=== PATIENT | female | born 1945 | race Caucasian/White ===

== ENCOUNTER → 2021-10-22 09:14 | Outpatient (BNVA) | payer MEDICARE, OTHER, SELFPAY | PROVIDERS: PCP Family Medicine; Referring Provider Nurse Practitioner Family; Visit Provider Podiatrist Foot & Ankle Surgery | DX: M79.671 Pain in right foot (principal); M21.611 Bunion of right foot | CPT/HCPCS: 73630 ==

== ENCOUNTER → 2022-08-08 09:50 | Outpatient (BNVA) | payer MEDICARE, SELFPAY | PROVIDERS: PCP Family Medicine; Visit Provider Podiatrist Foot & Ankle Surgery | DX: M21.611 Bunion of right foot (principal); M21.621 Bunionette of right foot | CPT/HCPCS: 73630; 99214 ==

== ENCOUNTER 2022-08-09 06:18 | Day surgery (SDC) | payer MEDICARE, SELFPAY ==
[2022-08-08 12:06] VITALS: BMI 29.2
[2022-08-09] VITALS (7 sets, daily range): BP systolic 96–145; BP diastolic 46–72; PULSE 66–75; RESP 16–18; TEMP 36.1–36.5; O2SAT 95–98
--- NOTE | 2022-08-09 06:41 | ECG_ITS ---
[facility] Test Date: 2022-08-09 Pat Name: Yenny Mcmanus Department: Room: Gender: Female [place]: : 1945 Requested By: Herb Katz Order Number: [id number] [place] MD: Sulma Guzman M.D. Measurements Intervals [place] Rate: 64 P: 58 [place]: 149 QRS: 36 QRSD: 105 T: 45 QT: 406 QTc: 420 Interpretive Statements SINUS RHYTHM No previous ECG available for comparison Electronically Signed On 08-09-2022 17:03:27 OVEN DUMPER by Sulma Guzman M.D. [email or web address]
[2022-08-09] MEDS: sodium chloride 0.9% 1,000 ML 30 ML IV (06:45)
[2022-08-09] MEDS: CELEcoxib 200 mg Capsule 400 MG PO (06:54)
[2022-08-09] MEDS: gabapentin 300 mg Capsule PO (06:54)
--- NOTE | 2022-08-09 08:13 | W.PM.OPSUD ---
Surgery/Procedure H&P Update DATE OF PROCEDURE: August 09, 2022 DATE H&P PERFORMED: 08/08/22 CHANGES TO PREVIOUS DOCUMENTATION: None PREOP DIAGNOSIS: Right bunion PLANNED PROCEDURE: Operation Date: 08/09/22 08:00 Proposed Procedures p Bunionectomy Tailors 54128/M21.611(Right) - Piter Boone DPM s Double Osteotomy(Right) - Piter Boone DPM
[2022-08-09] MEDS: ceFAZolin 2,000 MG in sodium chloride 0.9% (plus) 50 ML 100 MG IV (08:24)
--- NOTE | 2022-08-09 09:18 | PM.OP ---
Operative Report Date of procedure: August 09, 2022 Pre-op diagnosis: Preop Diagnosis Right bunion Post-op diagnosis: Right bunion Procedure done: Right Indra bunionectomy. CPT code 3296 Implants: Lauren 3 mm headed screw, Lauren 10 mm compression staple, 3-0 Vicryl, 4-0 Vicryl, 4-0 nylon Surgeon: Piter Boone D.P.M. Surgical Forceps Fabricator: Nikki Estimated blood loss: 5 30 Brief History: This is an established 76 YOF patient presenting to the clinic for a pre op appointment to go over recovery time & risk on a right hallux bunionectomy. Patient is scheduled for surgery tomorrow August 08.? She complains of right bunion pain has been progressive over the course of years and is no longer alleviated by conservative measures consisting of wide accommodative shoes, anti-inflammatories, activity modifications and stretching.? I reviewed at length with the patient, the risks, potential complications, benefits, alternatives, expectations, and typical outcomes associated with the surgery. The risks and potential complications were explained in detail, including but not limited to infection, wound dehiscence or soft tissue complications, bleeding and hematoma, chronic edema, neuritis or nerve damage producing numbness or chronic pain, CRPS, failure to relieve pain or worsening pain, thick / painful / unsightly scar, limited motion / stiffness, malposition, delayed union, malunion, or nonunion, fracture, reaction to implants, anesthetic complications, venous thromboembolism, and deformity recurrence.? I discussed the notion of no regrets with the patient as it pertains to complications and outcomes. The patient seemed to understand the nature of the proposed care and required convalescence. They asked appropriate questions, answered to their satisfaction. They are aware no guarantees can be made as to a satisfactory outcome and they understand there may be other possible unforeseen complications or outcomes not listed here that will be treated accordingly if they arise. There were no written or implied guarantees given to the patient. They gave informed consent to proceed. Procedure: Attention was directed to the dorsal medial aspect of the right first metatarsal phalangeal joint where a linear longitudinal incision was made through skin with a #15 blade with dissection carried down through subcutaneous tissue to the layer joint capsule and periosteum utilizing a combination of blunt and sharp technique.? Care was taken to retract and preserve neurovascular and tendinous structures.? All bleeders were ligated and cauterized as necessary.? A linear capsulotomy was performed and the medial eminence of the right first metatarsal head was transected with a sagittal saw and passed from operative field.? Next utilizing a sagittal saw a chevron osteotomy was performed apex oriented distally with the head of the first metatarsal right foot translated laterally into a more anatomically corrected position followed by fixation utilizing standard AO technique, osteotomy was fixated utilizing a Lauren headed 3 mm in diameter and partially threaded.? Medial shelf was transected, passed from operative field and all rough edges smoothed.? Fixation was robust with excellent bony apposition and compression noted without violating the first metatarsal phalangeal joint confirmed with direct visualization as well as intraoperative fluoroscopy in all 3 standard views.? Incision was then flushed with copious amounts of sterile skin solution.? Smooth range of motion of the first metatarsal plantar joint appreciated as well as reduction of the bunion deformity and a more rectus medial column was appreciated.? Capsule closed with 3-0 Vicryl, subcutaneous tissue with 4-0 Vicryl and skin with 4-0 nylon.? Exparel was infiltrated in a grid like fashion a total of 10 cc expanded with 10 cc of saline.? Dressings consisting of Adaptic, sterile 4 x 4's, Kerlix and Kenny wrap were applied and tourniquet was deflated.? Postop shoe and cam boot sent with the patient for protected weightbearing.? She was sent home with a cam boot with vital signs stable and vascular status intact.? Prescribed hydrocodone 5/325 mg to take every 4-6 hours as needed for pain.? Advised 81 mg aspirin once daily for the next 6 weeks to potentially reduce the risk of deep vein thrombosis.? Was given my cell phone number to contact with any postoperative questions or concerns.
--- NOTE | 2022-08-09 09:22 | XR_ITS ---
WS: [id number] Right foot, 3 views, 08/09/2022 Clinical Data: post op Comparison: Right foot, 08/08/2022 Findings: There is an osteotomy of the distal right first metatarsal with a distal oblique screw aiding in the reduction. There is resection of the medial aspect of the head of the right first metatarsal. XR/XR foot RT min 3V* [id number] Impression: Osteotomy and bunionectomy of the distal right first metatarsal.
--- NOTE | 2022-08-09 09:52 | ANES.PREANE2 ---
Pre-Anesthetic Assessment Height/Weight: Height 1.57 m Weight 72.575 kg Temp Pulse Resp BP Pulse Ox O2 Del Method 97.0 F L 69 16 134/72 98 08/09/22 09:39 08/09/22 09:39 08/09/22 09:39 08/09/22 09:39 08/09/22 09:39 08/09/22 09:39 Preop Diagnosis: Right bunion Operation Date: 08/09/22 08:00 Proposed Procedures p Bunionectomy Tailors 26714/M21.611(Right) - Piter Boone DPM s Double Osteotomy(Right) - Piter Boone DPM Familial anesthetic complications: none Was Beta Dinorah taken within 24 hours: N/A Was Clonidine taken within 24 hours: N/A Social No alcohol and No tobacco Exam alert, oriented x 3, clear to auscultation bilaterally and regular rate & rhythm Airway Submandibular: within normal limits Cervical ROM: within normal limits Mallampati: Class II Dentition: partials Anesthetic Plan ASA status: 1 Anesthesia: MAC Medications/Allergies Home Medications Medication Instructions Recorded Confirmed Last Taken Type hydrocodone 10 mg-acetaminophen 1 tab PO Q6H PRN pain 7 days #20 08/09/22 Unknown Rx 325 mg tablet tabs Allergies Allergy/AdvReac Type Severity Reaction Status Date / Time diphenhydramine Allergy ALGY-Hives Verified 08/09/22 06:33 [From Benadryl] Current Medications Generic Name Dose Route Start Last Admin Trade Name Freq PRN Reason Stop Dose Admin Sodium Chloride 1,000 mls @ 30 mls/hr 08/09/22 06:30 08/09/22 09:09 Sodium Chloride 0.9% IV 08/10/22 06:29 Infused .Q24H ROSSANA Infusion PFSH Anesthesia Medical History H/O Dixon's palsy Obesity 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
--- NOTE | 2022-08-09 14:44 | ANE.PACU2 ---
Inpatient post-anesthesia follow up: Airway intact: Yes Vital signs: Temperature 97.0 F Pulse Rate 72 Respiratory Rate 18 Blood Pressure 125/70 Pulse Oximetry 98 Oxygen Delivery Me thod Room Air Oxygen Flow Rate Fraction of Inspir ed Oxygen Hydration adequate: Yes Nausea and vomiting: No Pain level: 2 Mental status: Baseline
== END 2022-08-09 10:26 | disposition home or self-care (01) ==
PROVIDERS: PCP Nurse Practitioner Family; Visit Provider Podiatrist Foot & Ankle Surgery
PROC: 0QBP0ZZ Excision of Left Metatarsal, Open Approach (ICD-10-PCS; CPT 28110; principal; 2022-08-09 07:50)
DX: M21.611 Bunion of right foot (principal); E66.9 Obesity, unspecified; Z68.29 Body mass index [BMI] 29.0-29.9, adult
CPT/HCPCS: 28299; 73630; 93005; C1713; C9290; J0690; J1100; J2250; J2405; J2704; J3010; J3490; J7030

== ENCOUNTER → 2022-08-22 13:37 | Outpatient (BNVA) | payer MEDICARE, SELFPAY | PROVIDERS: PCP Nurse Practitioner Family; Visit Provider Podiatrist Foot & Ankle Surgery | DX: Z98.890 Other specified postprocedural states (principal); M21.611 Bunion of right foot; M21.621 Bunionette of right foot | CPT/HCPCS: 73630; 99024 ==

== ENCOUNTER → 2022-09-05 13:23 | Outpatient (BNVA) | payer MEDICARE, SELFPAY | PROVIDERS: PCP Nurse Practitioner Family; Visit Provider Podiatrist Foot & Ankle Surgery | DX: Z98.890 Other specified postprocedural states (principal); M21.611 Bunion of right foot; M21.621 Bunionette of right foot | CPT/HCPCS: 73630; 99024 ==

== ENCOUNTER → 2022-09-19 13:26 | Outpatient (BNVA) | payer MEDICARE, SELFPAY | PROVIDERS: PCP Nurse Practitioner Family; Visit Provider Podiatrist Foot & Ankle Surgery | DX: Z98.890 Other specified postprocedural states (principal); M79.671 Pain in right foot | CPT/HCPCS: 73630; 99024 ==

== ENCOUNTER → 2022-10-17 14:22 | Outpatient (BNVA) | payer MEDICARE, SELFPAY | PROVIDERS: PCP Nurse Practitioner Family; Visit Provider Podiatrist Foot & Ankle Surgery | DX: Z98.890 Other specified postprocedural states (principal); M21.611 Bunion of right foot; M21.621 Bunionette of right foot | CPT/HCPCS: 73630; 99024 ==

== ENCOUNTER → 2023-02-25 15:10 | Outpatient (BNVA) | payer MEDICARE, SELFPAY | PROVIDERS: PCP Nurse Practitioner Family; Visit Provider Nurse Practitioner Family | DX: M79.642 Pain in left hand (principal); M19.042 Primary osteoarthritis, left hand | CPT/HCPCS: 73130 ==